=== PATIENT | male | born 1965 | race Caucasian/White ===

== ENCOUNTER → 2018-03-25 18:46 | Outpatient (CLI) | payer OTHER, SELFPAY ==
--- NOTE | 2018-03-25 18:49 | DI.RAD.S_ITS ---
PROCEDURE: XR THORACIC SPINE 3V INDICATIONS: 52 year-old male with low back pain and increasing kyphosis. TECHNIQUE: 2 views of the thoracic spine were acquired. COMPARISON: None. FINDINGS: Bones: No fractures or dislocations. There is mild mid thoracic spine disc degeneration. No suspicious bony lesions. 13 pairs of ribs are noted, and appear intact where visualized. Inferior most pair of ribs is hypoplastic. Soft tissues: No paravertebral stripe thickening. IMPRESSION: Mild mid thoracic spine disc degeneration with kyphosis; no compression fractures. Dictated by: Marco Sequeira M.D. on 03/26/2018 at 8:22 Approved by: Marco Sequeira M.D. on 03/26/2018 at 8:24
--- NOTE | 2018-03-25 18:49 | DI.RAD.S_ITS ---
PROCEDURE: XR LUMBAR SPINE 3V INDICATIONS: 52 year-old male with mid back pain, without trauma. TECHNIQUE: 3 views of the lumbar spine were acquired. COMPARISON: [facility], CR, XR THORACIC SPINE 3V, 03/25/2018, 18:29. FINDINGS: Bones: 4 nonrib-bearing vertebrae are present. Inferior most pair of hypoplastic ribs corresponds to the L1 level, when compared with the thoracic spine films. There is minimal right convex curvature. No degenerative disc narrowing. No vertebral body compression fractures. No suspicious bony lesions. Soft tissues: Overlying bowel gas pattern is normal. No suspicious soft tissue calcifications. IMPRESSION: Mild lumbar spine dextroscoliosis, without disc or facet joint degeneration. Dictated by: Marco Sequeira M.D. on 03/26/2018 at 8:24 Approved by: Marco Sequeira M.D. on 03/26/2018 at 8:27
--- NOTE | 2018-03-25 18:49 | DI.RAD.S_ITS ---
PROCEDURE: XR CERVICAL SPINE 2V OR 3V INDICATIONS: 52 year-old male with neck pain. TECHNIQUE: 3 view(s) of the cervical spine were acquired. COMPARISON: None. FINDINGS: Bones: No fractures or dislocations to the T1 level. The lateral masses of C1 appear intact on the odontoid view. There is mild C5-C6 disc degeneration. No suspicious bony lesions. Soft tissues: No prevertebral soft tissue swelling. IMPRESSION: Mild C5-C6 disc degeneration, with normal overall bony alignment. Dictated by: Marco Sequeira M.D. on 03/26/2018 at 8:27 Approved by: Marco Sequeira M.D. on 03/26/2018 at 8:28
== END ==
PROVIDERS: PCP Family Medicine; Visit Provider Family Medicine
DX: M50.322 Other cervical disc degeneration at C5-C6 level (principal); M51.34 Other intervertebral disc degeneration, thoracic region; M54.5 Low back pain; M41.86 Other forms of scoliosis, lumbar region; M40.204 Unspecified kyphosis, thoracic region
CPT/HCPCS: 72040; 72072; 72110

== ENCOUNTER → 2018-04-12 18:35 | Outpatient (CLI) | payer OTHER, SELFPAY ==
--- NOTE | 2018-04-12 18:38 | DI.MRI.S_ITS ---
PROCEDURE: MR CERVICAL SPINE WO CON INDICATIONS: FOR NECK PAIN W PARESTHESIAS IN B/L HANDS TECHNIQUE: Noncontrast sagittal T1 spin echo and T2 fast spin echo, sagittal STIR, foraminal oblique sagittal T2 fast spin echo, and axial gradient echo or T2 fast spin echo through the cervical spine. COMPARISON: [facility], CR, XR CERVICAL SPINE 2V OR 3V, 03/25/2018 FINDINGS: Image quality: Excellent. Alignment and Curvature: There is normal bony alignment. Bone Marrow: Marrow demonstrates normal overall signal. Spinal Cord: Visualized spinal cord has normal size and signal. No cerebellar tonsillar herniation. Paraspinous Soft Tissues: No paravertebral masses. Prevertebral soft tissues are normal in thickness. C2-C3: Normal appearance. C3-C4: Normal appearance. C4-C5: Normal appearance. C5-C6: Loss of disc signal. Mild, diffuse disc bulge. Mild ligamentum flavum hypertrophy. Moderate bilateral facet hypertrophy. Moderate to severe narrowing of the central canal secondary to disc disease, facet hypertrophy and ligamentum flavum hypertrophy. Moderate bilateral uncovertebral joint hypertrophy. Severe bilateral neural foraminal narrowing secondary to disc disease, facet hypertrophy and uncovertebral joint hypertrophy with flexion deformity the exiting C6 nerve roots bilaterally. C6-C7: Loss of disc signal. Minimal, diffuse disc bulge. No central stenosis mild right and moderate left facet hypertrophy. Mild bilateral neural foraminal narrowing secondary to disc disease and facet hypertrophy. No neural impingement. C7-T1: Normal appearance. IMPRESSION: 1. C5-C6 and C6-C7 degenerative disc disease. 2. C5-C6 and C6-C7 facet arthropathy. 3. C5-C6 uncovertebral joint hypertrophy. 4. Moderate to severe C5-C6 central canal narrowing. 5. Severe bilateral C5-C6 neural foraminal narrowing. Mild bilateral C6 on C7 neural foraminal narrowing. 5. Flattened deformity the exiting bilateral C6 nerve roots secondary to C5-C6 neural foraminal narrowing. Please correlate with clinical data. Dictated by: Lisa Gomes MD, PhD on 04/13/2018 at 9:49 Approved by: Lisa Gomes MD, PhD on 04/13/2018 at 10:38
--- NOTE | 2018-04-12 18:38 | DI.MRI.S_ITS ---
PROCEDURE: MR LUMBAR SPINE WO CON INDICATIONS: FOR BACK PAIN W B/L LOWER EXTREMITY PARESTHESIAS TECHNIQUE: Noncontrast sagittal T1 spin echo and T2 fast echo, sagittal STIR, axial T1 and T2 fast spin echo through the lumbar spine. In cases with scoliosis, additional coronal T2 fast spin echo may be performed. COMPARISON: [facility], CR, XR LUMBAR SPINE MIN 4V, 03/25/2018, 18:29. FINDINGS: Image quality: Excellent. Alignment and Curvature: There is normal bony alignment. Bone Marrow: Minimal reactive endplate changes noted adjacent to the L5-S1 disc. No acute vertebral body compression fractures. Spinal Cord: Conus medullaris terminates at the L2 level. Visualized cord demonstrates normal signal and size. Paraspinous Soft Tissues: No paravertebral masses. L1-L2: Normal appearance. L2-L3: Normal appearance. L3-L4: Normal appearance. L4-L5: Disc has normal appearance. Mild bilateral facet hypertrophy. No central stenosis. Mild bilateral neural foraminal narrowing secondary to facet hypertrophy. No neural impingement. L5-S1: Loss of disc signal. Mild, diffuse disc bulge. Mild bilateral facet hypertrophy. No central stenosis. Moderate right and [id number] left neural foraminal narrowing secondary to disc and facet disease. No neural impingement. Focal hypodensities are noted in the posterior annulus compatible with a fissure. IMPRESSION: 1. Mild L5-S1 degenerative disc disease. 2. Mild L4-L5 and L5-S1 facet arthropathy. 3. No central stenosis. 4. Moderate right and mild to moderate left L5-S1 neural foraminal narrowing. Mild bilateral L4-L5 neural foraminal narrowing. 5. No neural impingement. 6. L5-S1 disc annulus fissure. Dictated by: Lisa Gomes MD, PhD on 04/13/2018 at 10:53 Approved by: Lisa Gomes MD, PhD on 04/13/2018 at 11:15
== END ==
PROVIDERS: PCP Family Medicine; Visit Provider Family Medicine
DX: M54.2 Cervicalgia (principal); R20.2 Paresthesia of skin; M47.9 Spondylosis, unspecified; M47.816 Spondylosis without myelopathy or radiculopathy, lumbar region; M48.02 Spinal stenosis, cervical region
CPT/HCPCS: 72141; 72148

== ENCOUNTER → 2019-01-21 07:05 | Outpatient (CLI) | payer OTHER, SELFPAY ==
[2019-01-21 08:39] LABS: Add Manual Diff / Slide Review NO; Basophils Absolute Auto 100 /uL (0-100); Basophils Percent Auto 1.1 % (0-2); Eosinophils Absolute Auto 400 /uL (0-450); Eosinophils Percent Auto 3.9 % (2-4); Hematocrit 44.3 % (41-53); Hemoglobin 14.9 g/dL (13.5-17.5); Lymphocytes Absolute Auto 1800 /uL (1100-4500); Lymphocytes Percent Auto 17.5 % (25-40); Mean Corpuscular HGB Conc 33.7 % (30-36); Mean Corpuscular Hemoglobin 29.8 PG (26-34); Mean Corpuscular Volume 88.6 fL (80-100); Monocytes Absolute Auto 700 /uL (0-900); Monocytes Percent Auto 6.5 % (3-14); Neutrophils Absolute Auto 7200 /uL (1500-7000); Platelet Count 314 X10^3/uL (150-400); White Blood Cell Count 10.1 X10^3/uL (4.5-11.0)
[2019-01-21 09:11] LABS: Alanine Aminotransferase 33 IU/L (21-72); Albumin 4.8 g/dL (3.5-5.0); Albumin Globulin Ratio 1.5 (1.0-2.8); Alkaline Phosphatase 50 U/L (38-126); Aspartate Aminotransferase 25 IU/L (17-59); BUN Creatinine Ratio 22.5 (6-22); Bilirubin Total 0.4 mg/dL (0.2-1.3); Blood Urea Nitrogen 18 mg/dL (9-20); Calcium 9.9 mg/dL (8.4-10.2); Carbon Dioxide 30 mmol/L (22-32); Chloride 99 mmol/L (98-107); Cholesterol 270 mg/dL (140-199); Estimated Glomerular Filt Rate > 60.0 mL/min (>60); Globulin 3.3 g/dL (1.7-4.1); Glucose 101 mg/dL (70-100); HDL Cholesterol 78 mg/dL (40-60); HEMOLYSIS < 15 (0-50); LDL Cholesterol Calculated 175 mg/dL (<100); Potassium 4.8 mmol/L (3.4-5.1); Sodium 139 mmol/L (137-145); Total Protein 8.1 g/dL (6.3-8.2); Triglycerides 83 mg/dL (35-150)
[2019-01-21 09:36] LABS: Prostate Specific Antigen Scrn 0.692 ng/mL (0.1-4.0)
[2019-01-21 09:38] LABS: Thyroid Stimulating Hormone 1.32 uIU/mL (0.47-4.68)
[2019-01-21 10:35] LABS: Appearance Urine UA CLEAR; Bilirubin Urine UA NEGATIVE (NEGATIVE); Color Urine UA YELLOW; Glucose Urine UA NEGATIVE (Negative); Ketones Urine UA NEGATIVE (NEGATIVE); Leukocyte Esterase Urine UA NEGATIVE (NEGATIVE); Nitrite Urine UA NEGATIVE (Negative); Occult Blood Urine UA NEGATIVE (Negative); Protein Urine UA NEGATIVE (Negative); Specific Gravity Urine UA <=1.005 (1.000-1.035); Urobilinogen Urine UA 0.2 E.U./dL (0.2)
== END ==
PROVIDERS: PCP Family Medicine; Visit Provider Family Medicine
DX: E78.00 Pure hypercholesterolemia, unspecified (principal); Z13.29 Encounter for screening for other suspected endocrine disorder; Z51.81 Encounter for therapeutic drug level monitoring; Z12.5 Encounter for screening for malignant neoplasm of prostate
CPT/HCPCS: 36415; 80053; 80061; 81003; 84443; 85025; G0103

== ENCOUNTER → 2019-07-23 08:02 | Outpatient (CLI) | payer OTHER, SELFPAY ==
[2019-07-23 09:36] LABS: Alanine Aminotransferase 36 IU/L (21-72); Albumin 4.5 g/dL (3.5-5.0); Albumin Globulin Ratio 1.6 (1.0-2.8); Alkaline Phosphatase 46 U/L (38-126); Aspartate Aminotransferase 33 IU/L (17-59); Bilirubin Total 0.6 mg/dL (0.2-1.3); Blood Urea Nitrogen 14 mg/dL (9-20); Calcium 9.2 mg/dL (8.4-10.2); Carbon Dioxide 29 mmol/L (22-32); Chloride 98 mmol/L (98-107); Cholesterol 170 mg/dL (140-199); Estimated Glomerular Filt Rate > 60.0 mL/min (>60); Globulin 2.8 g/dL (1.7-4.1); Glucose 92 mg/dL (70-100); HDL Cholesterol 76 mg/dL (40-60); HEMOLYSIS < 15 (0-50); LDL Cholesterol Calculated 80 mg/dL (<100); Potassium 3.9 mmol/L (3.4-5.1); Sodium 138 mmol/L (137-145); Total Protein 7.3 g/dL (6.3-8.2); Triglycerides 71 mg/dL (35-150)
== END ==
PROVIDERS: PCP Family Medicine; Visit Provider Family Medicine
DX: E78.00 Pure hypercholesterolemia, unspecified (principal); E78.5 Hyperlipidemia, unspecified
CPT/HCPCS: 80053; 80061

== ENCOUNTER → 2020-05-06 10:14 | Outpatient (CLI) | payer OTHER, SELFPAY ==
[2020-05-07 08:03] LABS: COVID19 Sendout Not Detected (Not Detect)
== END ==
PROVIDERS: PCP Family Medicine; Visit Provider Physician Assistant
DX: Z01.818 Encounter for other preprocedural examination (principal)
CPT/HCPCS: 87635

== ENCOUNTER → 2020-08-11 08:05 | Outpatient (CLI) | payer OTHER, SELFPAY ==
[2020-08-11 09:10] LABS: Hemoglobin A1C% w Est Avg Glu 5.5 % (4.0-6.0)
[2020-08-11 09:15] LABS: Cholesterol 201 mg/dL (140-199); HDL Cholesterol 69 mg/dL (40-60); LDL Cholesterol Calculated 117 mg/dL (<100); Triglycerides 76 mg/dL (35-150)
== END ==
PROVIDERS: PCP Family Medicine; Referring Provider Family Medicine; Visit Provider Family Medicine
DX: E78.00 Pure hypercholesterolemia, unspecified (principal)
CPT/HCPCS: 36415; 80061; 83036

== ENCOUNTER → 2022-02-10 07:09 | Outpatient (CLI) | payer OTHER, SELFPAY ==
[2022-02-10 09:22] LABS: Add Manual Diff / Slide Review NO; Basophils Absolute Auto 100 /uL (0-100); Basophils Percent Auto 1.1 % (0-2); Eosinophils Absolute Auto 500 /uL (0-450); Eosinophils Percent Auto 6.3 % (2-4); Hematocrit 41.6 % (41-53); Hemoglobin 14.1 g/dL (13.5-17.5); Lymphocytes Absolute Auto 1800 /uL (1100-4500); Lymphocytes Percent Auto 23.1 % (25-40); Mean Corpuscular HGB Conc 33.8 % (30-36); Mean Corpuscular Volume 88.7 fL (80-100); Monocytes Absolute Auto 700 /uL (0-900); Neutrophils Absolute Auto 4700 /uL (1500-7000); Neutrophils Percent Auto 60.5 % (50-75); Platelet Count 270 X10^3/uL (150-400); Red Cell Distribution Width 13.4 % (11.6-14.8); White Blood Cell Count 7.8 X10^3/uL (4.5-11.0)
[2022-02-10 09:58] LABS: Alanine Aminotransferase 50 IU/L (<50); Albumin 4.9 g/dL (3.5-5.0); Albumin Globulin Ratio 1.8 (1.0-2.8); Alkaline Phosphatase 57 U/L (38-126); Aspartate Aminotransferase 39 IU/L (17-59); BUN Creatinine Ratio 16.5 (6-22); Bilirubin Total 0.3 mg/dL (0.2-1.3); Blood Urea Nitrogen 13 mg/dL (9-20); Calcium 9.2 mg/dL (8.4-10.2); Carbon Dioxide 30 mmol/L (22-32); Chloride 101 mmol/L (98-107); Cholesterol 234 mg/dL (140-199); Estimated Glomerular Filt Rate > 60 mL/min (>60); Globulin 2.7 g/dL (1.7-4.1); Glucose 92 mg/dL (70-100); HDL Cholesterol 81 mg/dL (40-60); HEMOLYSIS < 15 (0-50); LDL Cholesterol Calculated 128 mg/dL (<100); Potassium 4.1 mmol/L (3.4-5.1); Sodium 140 mmol/L (137-145); Total Protein 7.6 g/dL (6.3-8.2); Triglycerides 127 mg/dL (35-150)
== END ==
PROVIDERS: PCP Family Medicine; Referring Provider Family Medicine; Visit Provider Family Medicine
DX: E78.00 Pure hypercholesterolemia, unspecified (principal); R73.9 Hyperglycemia, unspecified
CPT/HCPCS: 36415; 80053; 80061; 85025

== ENCOUNTER → 2024-07-04 09:54 | Outpatient (CLI) | payer OTHER, SELFPAY ==
--- NOTE | 2024-07-04 09:55 | DI.RAD.S_ITS ---
PROCEDURE: XR SHOULDER RT MIN 2V INDICATIONS: Eval R shoulder TECHNIQUE: 3 views of the shoulder were acquired. COMPARISON: None. FINDINGS: No acute fracture or dislocation. The glenohumeral joint is preserved. Mild acromioclavicular osteoarthritis. The visualized right hemithorax is within normal limits. IMPRESSION: Mild acromioclavicular osteoarthritis. Dictated by: Thiago Diaz M.D. on 07/04/2024 at 11:01 Approved by: Thiago Diaz M.D. on 07/04/2024 at 11:03
--- NOTE | 2024-07-04 09:55 | DI.RAD.S_ITS ---
PROCEDURE: XR HIP W PEL IF DONE RT 2V INDICATIONS: Eval R hip TECHNIQUE: AP view of the pelvis, frog-leg view of the right hip COMPARISON: None. FINDINGS: No fracture or dislocation. No pelvic ring disruption. Mild bilateral hip osteoarthritis. The sacroiliac joints and pubic symphysis are preserved. IMPRESSION: Mild right hip osteoarthritis. Dictated by: Thiago Diaz M.D. on 07/04/2024 at 11:00 Approved by: Thiago Diaz M.D. on 07/04/2024 at 11:01
== END ==
LOC: RAD 09:54
PROVIDERS: PCP Family Medicine; Referring Provider Family Medicine; Visit Provider Family Medicine
DX: M16.11 Unilateral primary osteoarthritis, right hip (principal); M19.011 Primary osteoarthritis, right shoulder; M25.551 Pain in right hip; M25.511 Pain in right shoulder
CPT/HCPCS: 73030; 73502

== ENCOUNTER 2024-08-02 08:25 | Emergency (ER) | payer OTHER, SELFPAY ==
[2024-08-02 08:25] VITALS: BP 178/120; PULSE 80; RESP 18; TEMP 36.4; O2SAT 100
[2024-08-02 08:33] VITALS: BP 162/103; PULSE 87; O2SAT 100
[2024-08-02 08:50] VITALS: BP 197/112; PULSE 105; O2SAT 98
--- NOTE | 2024-08-02 08:58 | PC.NURSE ---
Pt's blood sugar 56. gave 2 glasses of orange juice. Pt is nervous and very anxious. does not want an IV for blood draws, iv medication or a ct scan with iv contrast. Pt requested a test for covid. pt wants to leave and go home. reviewed about hypoglycemia. pts blood pressure is high. Dr. Bowers is aware of the above and he will go in to speak with the patient.
[2024-08-02 09:00] VITALS: BP 169/97; PULSE 87; O2SAT 98
--- NOTE | 2024-08-02 09:02 | ED.HA ---
HPI - Headache General Chief Complaint: Headache Stated Complaint: sent by [facility] for ct Time Seen by Provider: 08/02/24 08:34 Mode of arrival: Family Vehicle History of Present Illness HPI Narrative: 58-year-old male without history of known headaches, referred from walk-in clinic for possible brain imaging, possible headache treatment cocktail treatment. He has right-sided occipital area atraumatic headache symptoms since earlier today. No weakness. No history of previous headaches. No change in medications. No recent illness symptoms. No fevers or chills. Related Data Previous Rx's Medication Instructions Recorded trazodone 50 mg tablet 50 mg PO BEDTIME PRN sleep #30 tabs 07/04/24 Allergies Allergy/AdvReac Type Severity Reaction Status Date / Time No Known Allergies Allergy Uncoded 08/02/24 07:46 Review of Systems Review of Systems Narrative: see HPI Patient History Medical History (Updated 08/02/24 @ 09:12 by Antonio Bowers MD) Insomnia Preventative health care Actinic keratosis due to exposure to sunlight Right hip pain Lateral epicondylitis of right elbow Obstructive sleep apnea syndrome Right otitis externa Otitis externa Neoplasm of uncertain behavior of skin Foraminal stenosis of cervical region Paresthesias in right hand Paresthesias in left hand Right leg paresthesias Left leg paresthesias Low back pain Thoracic back pain Elbow pain, left (Unknown) Neck pain (Unknown) Hypercholesterolemia (Unknown) Insomnia (Unknown) Shoulder pain, right (Unknown) Knee pain, right (Unknown) Kyphosis (Unknown) Positive PPD (1996) Pure hypercholesterolemia (11/20/17) Primary insomnia (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 Grandmother Diabetes mellitus Dementia Alcohol abuse Social History marital status: Smoking Status: Current some day smoker alcohol intake: current substance use type: does not use Smoking Status: Current some day smoker tobacco type: cigarettes alcohol intake frequency: 0-2 drinks per day Substance Use Type: does not use Exam Narrative Exam Narrative: GENERAL: Well-developed patient, in mild distress. HEAD: Atraumatic. Normocephalic. EYES: Pupils equal round and reactive. Extraocular motions intact. No scleral icterus. No injection or drainage. ENT: Nose without bleeding, purulent drainage. Throat without erythema, tonsillar hypertrophy or exudate. Airway patent. NECK: Trachea midline. Non tender CARDIOVASCULAR: Regular rate and rhythm without murmurs, gallops, or rubs. RESPIRATORY: Clear to auscultation. Breath sounds equal bilaterally. No wheezes, rales, or rhonchi. GASTROINTESTINAL: Abdomen soft, non-tender, nondistended. EXTREMITIES: No edema or joint tenderness. BACK: Nontender without deformity or crepitance. No flank tenderness. NEURO: AOx3. Motor exam grossly nonfocal SKIN: No rash or erythema of visible areas Initial Vital Signs Initial Vital Signs: Vital Signs Temperature 97.6 F 08/02/24 08:25 Pulse Rate 80 08/02/24 08:25 Respiratory Rate 18 08/02/24 08:25 Blood Pressure 178/120 H 08/02/24 08:25 Pulse Oximetry 100 08/02/24 08:25 Oxygen Delivery Method Room Air 08/02/24 08:25 Course Orders Ordered: Discontinued Medications Dexamethasone (Dexamethasone 10 Mg/Ml Vial) 10 mg IV NOW ONE Stop: 08/02/24 08:36 Last Admin: 08/02/24 09:11 Dose: Not Given Documented By: MARIA ELENA Diphenhydramine HCl (Diphenhydramine 50 Mg/Ml Vial) 25 mg IV NOW ONE Stop: 08/02/24 08:36 Last Admin: 08/02/24 09:11 Dose: Not Given Documented By: MARIA ELENA Ketorolac Tromethamine (Ketorolac 30 Mg/Ml Vial) 30 mg IM NOW ONE Stop: 08/02/24 08:55 Last Admin: 08/02/24 09:11 Dose: Not Given Documented By: MARIA ELENA Prochlorperazine (Prochlorperazine 10 Mg/2 Ml Vial) 10 mg IV NOW ONE Stop: 08/02/24 08:36 Last Admin: 08/02/24 09:11 Dose: Not Given Documented By: MARIA ELENA Vital Signs Vital signs: Vital Signs - 8 hr 08/02/24 08:25 Temperature 97.6 F Pulse Rate 80 Respiratory Rate 18 Blood Pressure 178/120 H Pulse Oximetry 100 Oxygen Delivery Method Room Air MDM - Headache Lab Data Labs: Point of Care Testing Glucose POC 84 MDM Narrative Medical decision making narrative: 58-year-old male initially referred for further evaluation and treatment for atraumatic right occipital headache, CT imaging ordered but declined. Glucose was checked per headache protocol orders, found to be low at 56, oral orange use given, sugar improved to 80s, headache resolved. Patient would like no further treatment, likely hypoglycemia related headache. This seems reasonable. Imaging studies, other IV treatment orders, all canceled. Patient encouraged to have adequate intake. Consider checking sugar again as an outpatient to see if he has some degree of asymptomatic hypoglycemia. Discharge Plan Departure Patient Disposition: Home Clinical Impression: Headache Activity Restrictions/Additional Instructions: Right-sided occipital headache, without known trauma, no history of known headaches. Initial evaluation walk-in clinic, concern for non benign pathology, referred for potential imaging and migraine like cocktail treatment plan. Imaging ordered, declined. Screening sugar found to be low 56, oral glucose load orange juice given, glucose increased to the 80s, headache symptoms resolved. It is possible your headache is related to hypoglycemia. Consider some degree of asymptomatic hypoglycemia, consider checking your blood sugar in clinic setting to make sure it has not often low for some non benign cause. No history of diabetes known. Take Tylenol as needed for recurrent headaches if they are not responsive to glucose/feed loads. Imaging and other treatment or just canceled. Discharge, stable, improved. Prescriptions: No Action trazodone 50 mg tablet 50 mg PO BEDTIME PRN (Reason: sleep) Qty: 30 1RF Referrals: Merrill Marroquin DO [Primary Care Provider] - Stand Alone Forms: Patient Portal/API
== END 2024-08-02 09:26 | disposition home or self-care (01) ==
PROVIDERS: Emergency Provider Emergency Medicine; PCP Family Medicine
DX: R51.9 Headache, unspecified (principal); E16.2 Hypoglycemia, unspecified
CPT/HCPCS: 82962; 99282

== ENCOUNTER → 2024-09-20 07:07 | Outpatient (CLI) | payer OTHER, SELFPAY ==
[2024-09-20 08:16] LABS: Add Manual Diff / Slide Review NO; Basophils Absolute Auto 100 /uL (0-100); Eosinophils Absolute Auto 500 /uL (0-450); Eosinophils Percent Auto 5.4 % (2-4); Hematocrit 44.8 % (41-53); Hemoglobin 15.1 g/dL (13.5-17.5); Lymphocytes Absolute Auto 1900 /uL (1100-4500); Lymphocytes Percent Auto 22.7 % (25-40); Mean Corpuscular HGB Conc 33.7 % (30-36); Mean Corpuscular Hemoglobin 30.4 PG (26-34); Mean Corpuscular Volume 90.2 fL (80-100); Monocytes Absolute Auto 800 /uL (0-900); Neutrophils Absolute Auto 5100 /uL (1500-7000); Neutrophils Percent Auto 60.9 % (50-75); Platelet Count 287 X10^3/uL (150-400); Red Blood Cell Count 4.97 X10^6/uL (4.5-5.9); Red Cell Distribution Width 14.2 % (11.6-14.8); White Blood Cell Count 8.4 X10^3/uL (4.5-11.0)
[2024-09-20 08:42] LABS: Alanine Aminotransferase 64 IU/L (<50); Albumin 4.9 g/dL (3.5-5.0); Albumin Globulin Ratio 1.7 (1.0-2.8); Alkaline Phosphatase 61 U/L (38-126); Aspartate Aminotransferase 41 IU/L (17-59); BUN Creatinine Ratio 22.8 (6-22); Bilirubin Total 0.5 mg/dL (0.2-1.3); Blood Urea Nitrogen 18 mg/dL (9-20); Calcium 9.9 mg/dL (8.4-10.2); Carbon Dioxide 30 mmol/L (22-32); Chloride 99 mmol/L (98-107); Estimated Glomerular Filt Rate > 60 mL/min (>60); Globulin 2.9 g/dL (1.7-4.1); Glucose 115 mg/dL (70-100); HDL Cholesterol 88 mg/dL (40-60); HEMOLYSIS < 15 (0-50); Potassium 4.6 mmol/L (3.4-5.1); Sodium 136 mmol/L (137-145); Total Protein 7.8 g/dL (6.3-8.2); Triglycerides 138 mg/dL (35-150)
[2024-09-20 08:49] LABS: Cholesterol 381 mg/dL (140-199); LDL Cholesterol Calculated 265 mg/dL (<100)
[2024-09-20 09:09] LABS: Prostate Specific Antigen 0.813 ng/mL (0.10-4.00)
== END ==
PROVIDERS: PCP Family Medicine; Referring Provider Family Medicine; Visit Provider Family Medicine
DX: Z00.00 Encounter for general adult medical examination without abnormal findings (principal); M25.551 Pain in right hip; E78.00 Pure hypercholesterolemia, unspecified
CPT/HCPCS: 36415; 80053; 80061; 84153; 85025